=== PATIENT | female | born 1985 ===

== ENCOUNTER 2017-08-17 12:30 | Inpatient (IN) | payer OTHER ==
[~2017-08-17] VITALS: Ht 165.1 cm; Wt 79.4 kg
[2017-09-12] MEDS ORDERED: PRENATAL 19 TA1 EAC1 PO (14:29)
== END 2017-09-15 11:46 | DRG 766 ==
LOC: LDR 09-12 12:53 → SURG-SUITE 09-12 12:53 → LDR 09-12 13:24 → SURG-SUITE 09-12 15:00 → LDR 09-16 12:30
PROVIDERS: Obstetrics & Gynecology
PROC: 4A033R1 Measurement of Arterial Saturation, Peripheral, Percutaneous Approach (ICD-10-PCS; 2017-09-12)
PROC: 4A1HXCZ Monitoring of Products of Conception, Cardiac Rate, External Approach (ICD-10-PCS; 2017-09-12)
PROC: 10D00Z1 Extraction of Products of Conception, Low, Open Approach (ICD-10-PCS; principal; 2017-09-12 13:00)
DX: O34.211 Maternal care for low transverse scar from previous cesarean delivery (principal); Z3A.38 38 weeks gestation of pregnancy; Z37.0 Single live birth